=== PATIENT | male | born 2000 | race Caucasian/White ===

== ENCOUNTER 2024-10-26 11:54 | Emergency (ER) | payer OTHER, SELFPAY ==
--- NOTE | ~2024-10-26 | XR_ITS ---
EXAMINATION: XR SHOULDER, RIGHT CLINICAL INFORMATION: Right shoulder pain. dislocation COMPARISON: None available. TECHNIQUE: AP external rotation, Grashey, scapular Y, and axillary views of the right shoulder. FINDINGS: The bones and soft tissues are normal. No fracture. Glenohumeral and acromioclavicular alignment is anatomic with normal joint space. No abnormal soft tissue calcifications. XR/XR shoulder RT min 2V IMPRESSION: Normal right shoulder. Electronically signed by: Jefry Mcallister MD 10/26/2024 02:33 PM EST [place]
[2024-10-26 12:48] VITALS: BP 135/79; PULSE 100; RESP 18; TEMP 36.6; O2SAT 100; BMI 27.1
--- NOTE | 2024-10-26 12:51 | ED_ITS ---
HPI - Extremity Problem General Chief complaint: Extremity Injury, Upper Stated complaint: r shoulder inj at work Time Seen by Provider: 10/26/24 14:10 Source: patient Mode of arrival: ambulatory Limitations: no limitations History of Present Illness ED Provider: Lily Madera PA-C HPI Narrative: 24-year-old male with no significant past medical history seen in the ED for concerns regarding pain to the right shoulder after lifting a couch at work; reports that the pain radiates to the ribs on the right side as well as the right upper portion of the back. Has not tried anything to relieve the pain. Reports that movement makes it worse and he has limited range of motion to the right upper extremity. Denies chest pain, shortness of breath, numbness and tingling of extremities. Denies fever, chills, generalized weakness. MD Complaint: extremity pain Onset (ago): hour(s) (6) Pain Consistency: constant Location: right, upper extremity and other (shoulder) Radiation: other (scapular region and ribs on right side ) Relieving factors: nothing Exacerbating factors: range of motion Related Data Allergies Allergy/AdvReac Type Severity Reaction Status Date / Time No Known Allergies Allergy Verified 10/26/24 12:49 Review of Systems Constitutional: Constitutional: Reports no additional constitutional complaints, Denies chills, Denies fever(s) and Denies night sweats Eyes: Eyes: Reports no additional eye complaints, Denies blurry vision, Denies change in vision, Denies diplopia, Denies eye discharge, Denies loss of vision and Denies eye pain ENT: Denies dizziness Cardiovascular: Cardiovascular: Reports no additional cardiovascular complaints, Denies chest pain, Denies lightheadedness, Denies Loss of Cons ciousness and Denies dyspnea Respiratory: Respiratory: Reports no additional respiratory complaints and Denies dyspnea Gastrointestinal: Gastrointestinal: Reports no additional gastrointestinal complaints, Denies abdominal pain, Denies melena, Denies hematochezia, Denies change in bowel habits and Denies change in stool character Genitourinary: Genitourinary: Reports no additional male genitourinary complaints, Denies hematuria, Denies oliguria, Denies difficulty urinating, Denies dysuria, Denies urinary frequency, Denies urinary hesitancy, Denies urinary incontinence and Denies urinary urgency Musculoskeletal: Musculoskeletal: Reports limited range of motion, Denies numbness and Denies tingling Comments: pain to right shoulder/scapular region; limited ROM upper right extremity secondary to pain Integumentary/Breasts: Skin/Breast: Reports system reviewed and no additional complaints, except as docu and Reports as per HPI Neurologic: Denies dizziness, Denies loss of vision, Denies numbness and Denies tingling Psychiatric: Psychiatric: Reports no additional psychiatric complaints Endocrine: Endocrine: Reports no additional endocrine complaints Hematologic/Lymphatic: Hematologic/Lymphatic: Reports no additional hematologic/lymphatic complaints Allergic/Immunologic: Allergic/Immunologic: Reports no additional allergic/immunologic complaints [facility] Past Medical History Attestation statement: The following information was validated with the patient. Source: old records reviewed and nursing notes reviewed Social History Social History Advance Directives: No Advance Directives Information Provided: No Physical Exam Vital Signs: Vital Signs: Last Vital Signs Temp 98 F 10/26/24 15:34 Pulse 100 10/26/24 15:34 Resp 18 10/26/24 15:34 BP 135/79 10/26/24 15:34 Pulse Ox 100 10/26/24 15:34 O2 Del Method Room Air 10/26/24 15:34 BMI result Body Mass Index 27.1 Const: General: cooperative, no acute distress, alert and awake Nutritional Appearance: well nourished Orientation/consciousness: patient oriented x3 Limitations: no limitations HEENT: Head: Yes normal to inspection and Yes atraumatic Ears: hearing grossly normal bilaterally and external ears normal General nose exam: Normal external nose present, no nasal discharge noted and no epistaxis Face and sinus: Yes normal facial exam, No abrasion and No laceration Mouth: Normal or al and palatal mucosa present, no drooling and no muffled voice Eyes: General: appearance normal, both eyes and all related structures Periorbital: periorbital findings normal Eyelids: Yes eyelids normal Conjunctivae: conjunctivae normal Pupils: Equal, round and reactive pupils present EOM: EOMs intact bilaterally Neck: Neck: Yes normal visual inspection, Yes full ROM and Yes no lymphadenopathy Chest: Chest palpation & inspection: normal inspection of the chest Resp: Effort & Inspection: normal respiratory effort and able to speak in complete sentences Auscultation: clear to auscultation bilaterally, no crackles, no rales, no rhonchi and no wheezes Cardio: Rate: regular rate Rhythm: regular rhythm GI: Inspection: Yes normal to inspection Skin: General skin exam: no rashes or lesions noted Neuro: General: patient oriented x3 and moves all extremities Cranial nerves: Yes Equal, round and reactive pupils present Cognition (Neuro): normal cognition Extrem: General: Yes normal to inspection and Yes capillary refill normal Right upper extremity: normal capillary refill and shoulder/upper arm Details: abnormal ROM Details: pain with active ROM; no tenderness; ROM limited and no cyanosis Left upper extremity: full ROM Right lower extremity: full ROM Left lower extremity: full ROM Psych: Appearance: grossly normal Mental Status: mental status grossly normal Affect: normal affect Attitude: cooperative Thought process: Normal thought process present Thought content: Normal thought content present Insight: Good insight present (Psych) Course Course Course Narrative: RME: 24 yold male presents to ED for right shoulder upper back pain after l ifting heavy couch 08:00 this morning. While lifting he felt sudden pinch in right shoulder. Patient states able to move shoulder but pain on range of motion. Exam positive for mild posterior shoulder tenderness on palpation negative for obvious deformity. Vascular neuro exam intact. Motor exam limited due to pain, but intact. Medical Decision Making Medical Decision Making MDM Narrative: Patient is a 24 year old assigned male at with no reported medical history presenting to the emergency department today with right shoulder pain. Patient's physical exam was as noted in the physical exam portion of this note. Patient's exam is most consistent with a rotator cuff injury. Patient's right shoulder x- ray showed no acute process. I explained my physical exam findings as well as all test results to the patient. I answered all questions asked by the patient. I stressed the importance of the patient taking his medication as directed (either prescribed or as the over the counter packaging recommends). I stressed the importance of the patient following up with his primary care provider, an orthopedic provider, and given this was a work place injury - with work connection. I stressed the importance of the patient returning to the emergency department immediately if his symptoms were to worsen or if he were to develop any dizziness, shortness of breath, difficulty breathing, chest pain, blurry vision, loss of vision, nausea, vomiting, abdominal pain, fever, chills, back pain, or any other complaints. Patient verbalized agreement and understanding with this treatment plan and discharge. Differential Diagnosis Differential Diagnoses: The differential diagnosis associated with the presentation includes Right rotator cuff injury Right rotator cuff strain Right rotator cuff sprain Right AC sprain Right AC strain Admission/Observation Consideration of admission/observation: Escalation of care including admission/observation considered Patient would have been admitted to the hospital had his work up had any findings where hospital admission was appropriate and his clinical presentation warranted hospital admission. Independent Interpretation I performed an independent interpretation of an: Plain X-Ray Interpretation: My interpretation is in agreement with the radiologist's impression of this imaging study. EXAMINATION: XR SHOULDER, RIGHT CLINICAL INFORMATION: Right shoulder pain. dislocation COMPARISON: None available. TECHNIQUE: AP external rotation, Grashey, scapular Y, and axillary views of the right shoulder. FINDINGS: The bones and soft tissues are normal. No fracture. Glenohumeral and acromioclavicular alignment is anatomic with normal joint space. No abnormal soft tissue calcifications. XR/XR shoulder RT min 2V IMPRESSION: Normal right shoulder. Electronically signed by: Jefry Mcallister MD 10/26/2024 02:33 PM [facility] Dictated By: Jefry Mcallister MD Signed By: Electronically signed by Jefry Mcallister MD 10/26/24 1433 Radiology Impression Discussion of test interpretation with radiology: I have reviewed the radiologist's reading. Discharge Plan Discharge Clinical Impression: Rotator cuff injury Patient Disposition: Home, Self-Care Instructions: Rotator Cuff Injury (ED), Rotator Cuff Injury Exercises (DC) Additional Instructions: Follow up with your primary care provider, an orthopedic provider, and with work connection. Return to the emergency department immediately if your symptoms worsen or if you develop any dizziness, shortness of breath, difficulty breathing, chest pain, blurry vision, loss of vision, nausea, vomiting, abdominal pain, fever, chills, back pain, or any other complaints. Referrals: [facility] [facility] Family Medicine [Provider Group] (Call to establish and follow up with a primary care provider. If you already have a primary care provider, please follow up with them. ) [facility] [place] [facility] Primary Care, [place] [Provider Group] (Call to establish and follow up with a primary care provider. If you already have a primary care provider, please follow up with them. ) [facility] [place] [facility] Primary Care,[place] [Provider Group] (Call to establish and follow up with a primary care provider. If you already have a primary care provider, please follow up with them. ) [facility] [place] Orthopedic Surgeons [Provider Group] (Call to establish and follow up with an orthopedic provider for your probable right rotator cuff strain / sprain. ) Work [facility] [Provider Group] (Given this was a work place injury, please call to establish and follow up with work connection. ) Stand Alone Forms: Work/School Release Interventions: ED Discharge Assessment Last Done: 10/26/24 15:34 Discharge Date/Time: 10/26/24 15:35 Print Language: Azeri
[2024-10-26 15:34] VITALS: BP 135/79; PULSE 100; RESP 18; TEMP 36.6; O2SAT 100
== END 2024-10-26 15:35 | disposition home or self-care (01) ==
PROVIDERS: Emergency Provider Emergency Medicine
DX: M75.101 Unspecified rotator cuff tear or rupture of right shoulder, not specified as traumatic (principal); X50.0XXA Overexertion from strenuous movement or load, initial encounter; Y93.89 Activity, other specified; Y92.9 Unspecified place or not applicable; Y99.0 Civilian activity done for income or pay
CPT/HCPCS: 73030; 99282; 99283

== ENCOUNTER 2024-11-05 13:02 | Outpatient (AMB) | payer OTHER, SELFPAY ==
--- NOTE | 2024-11-05 13:07 | MHC.OFFVIS ---
Intake Visit Reasons: ED f/u WC Rt Rotator cuff injury Intake Note: Jake a 24 year old male who presents today as a new patient for a evaluation of right shoulder injury, DOI: 10/26/24. Patient reports while at work he was lifting a couch and had rotated couch to get through the door. The couch was slipping and he had caught couch from falling and felt a pinch. He presented to [facility] the same day where x-rays were taken and referred to orthopedics. He continues to have pain a the top of his shoulder that travels to his shoulder blade. Denies numbness or tingling. Limited ROM. States having swelling in his fingers however this subsided about a week after his injury. No previous tx. He is currently out of work. Allergies strawberries Allergy (Uncoded 11/05/24 13:10) itchy mouth Medication List - Last Reconciled 11/05/24 by Andrew Espinoza PA-C No Known Home Meds HPI HPI ED f/u WC Rt Rotator cuff injury: Details: 24 yo male presents to the office today for an injury he sustained to the right shoulder on 10/26/24. He states him in a co-worker were trying to move a couch when he went [address] and the co-worker went the other way and the couch went to fall and he tried to catch it with his arm. He states at that moment felt a pull in his shoulder. He states he has difficulty with lifting the arm. He has significant weakness. He was seen in the emergency department, x-rays obtained and he was referred to our office for ortho eval. [facility] Social History (Updated 11/05/24 @ 13:11 by KIRSTY Helm) Patient Tobacco Use Status: Current everyday Tobacco user Current occupational status: employed Current occupation: maintenance, right hand dominant Review of Systems Const All systems reviewed & are unremarkable except as noted in HPI and below Physical Exam Const General: cooperative and no acute distress Orientation/consciousness: patient oriented x3 Resp Effort & Inspection: normal respiratory effort and able to speak in complete sentences Cardio Peripheral pulses: Peripheral pulses 2+ throughout Neuro General: patient oriented x3 Extrem Other: On inspection he has significant shoulder imbalance on the right compared to the contralateral side when. Forward flexion to 90 degrees. External rotation 45 degrees. Internal rotation to back pocket. Significant discomfort with rotator cuff strength testing. Positive Knobel's. Neurovascularly intact. Results Reviewed Results Reviewed: X-rays of the right shoulder obtained in the emergency department on October 26 are negative for any fractures or dislocations. Joint space well preserved. Assessment & Plan Assessment & Plan (1) Internal derangement of right shoulder: Code(s): M24.811 - Other specific joint derangements of right shoulder, not elsewhere classified Category: Medical Plan: At this time an MRI of the right shoulder has been ordered to further evaluate the integrity of the rotator cuff and surrounding structures. I did review with him some exercises he should work on at home such as pendulums and scapular stabilization. He will remain out of work until I see him back to discuss the results and determine the next step in his treatment he is content with this plan. Orders: Orders MR shoulder RT wo con Today M77.8 - Other enthesopathies, not elsewhere classified Coding Level of Care Code New Pt Level 3 (18120) Complex EM visit Add On G2211 Diagnoses Internal derangement of right shoulder M24.811
== END 2024-11-05 13:34 | disposition home or self-care (01) ==
PROVIDERS: Visit Provider Physician Assistant
DX: M24.811 Other specific joint derangements of right shoulder, not elsewhere classified (principal)
CPT/HCPCS: 99203; G2211

== ENCOUNTER → 2024-11-05 13:02 | Outpatient (BNVA) | payer OTHER, SELFPAY | PROVIDERS: Visit Provider Physician Assistant | DX: M24.811 Other specific joint derangements of right shoulder, not elsewhere classified (principal) | CPT/HCPCS: 99202 ==

== ENCOUNTER 2024-11-14 07:17 | Outpatient (REF) | payer OTHER, SELFPAY ==
--- NOTE | ~2024-11-14 | MR_ITS ---
EXAMINATION: MR SHOULDER WITHOUT CONTRAST RIGHT CLINICAL INFORMATION: Other enthesopathies, not elsewhere classified - M77.8. Right shoulder tightness, decreased ROM. Crunching sound. Lifting injury. Pain. COMPARISON: XR right shoulder 10/26/2024. TECHNIQUE: MRI of the shoulder without contrast was performed on a high-field scanner. FINDINGS: ROTATOR CUFF: Intact. No muscle atrophy or fatty infiltration. BICEPS: Intact. CORACOACROMIAL ARCH: The undersurface of the acromion is flat with no subacromial spur. The acromioclavicular joint is normal. LABRUM/CAPSULE: No displaced labral tear. Intact joint capsule. GLENOHUMERAL JOINT/MARROW: Intact articular cartilage. No marrow edema or evidence of acute osseous injury. Humeral head well seated within the glenoid. No joint effusion. MR/MR shoulder RT wo con IMPRESSION: Unremarkable examination. Electronically signed by: Mello Beckham MD 11/17/2024 10:41 AM JOSE ELIAS
== END 2024-11-14 07:18 | disposition home or self-care (01) ==
LOC: HO.MRI 07:17
PROVIDERS: Visit Provider Physician Assistant
DX: M77.8 Other enthesopathies, not elsewhere classified (principal)
CPT/HCPCS: 73221

== ENCOUNTER 2024-11-27 10:06 | Outpatient (AMB) | payer OTHER, SELFPAY ==
--- NOTE | 2024-11-27 10:07 | A.OFFVIS_ITS ---
Vital Signs 11/27/24 10:09 Height 6 ft Weight 200 lb BMI 27.1 Intake Visit Reasons: TH- MRI review RT shoulder Intake Note: Jake is a 24 year old male who presents today for an MRI review of right shoulder s/p WC injury on 10/26/24. Patient reports that he has had improvement in his shoulder pain however he does having ongoing pain and tension. Allergies strawberries Allergy (Uncoded 11/27/24 10:10) itchy mouth Medication List - Last Reconciled 11/27/24 by Andrew Espinoza PA-C No Known Home Meds HPI HPI TH- MRI review RT shoulder: Details: 24-year-old gentleman returns today for a telehealth visit MRI review right shoulder. States he has had some improvement in pain however he continues to have some sensation of instability with reaching behind his back. For example with putting on a seatbelt. [facility] Social History (Updated 11/05/24 @ 13:11 by Cherie Lundy Alfonso) Patient Tobacco Use Status: Current everyday Tobacco user Current occupational status: employed Current occupation: maintenance, right hand dominant Review of Systems Const All systems reviewed & are unremarkable except as noted in HPI and below Physical Exam Const General: cooperative and no acute distress Orientation/consciousness: patient oriented x3 Resp Effort & Inspection: normal respiratory effort and able to speak in complete sentences Cardio Peripheral pulses: Peripheral pulses 2+ throughout Neuro General: patient oriented x3 Telehealth Telehealth Telehealth Platform: Telephone Location of provider rendering services: practice address Location of patient: address on file Patient Identification confirmed using: Name, : Yes Telehealth method: voice only Patient verbally consented to treatment: Yes Patient verbally consented to billing insurance company: Yes Patient informed of any privacy concerns related to visit: Yes Minutes spent on Phone/Video with Pt.: 12 Results Reviewed Results Reviewed: MRI of the shoulder without contrast was performed on a high-field scanner. FINDINGS: ROTATOR CUFF: Intact. No muscle atrophy or fatty infiltration. BICEPS: Intact. CORACOACROMIAL ARCH: The undersurface of the acromion is flat with no subacromial spur. The acromioclavicular joint is normal. LABRUM/CAPSULE: No displaced labral tear. Intact joint capsule. GLENOHUMERAL JOINT/MARROW: Intact articular cartilage. No marrow edema or evidence of acute osseous injury. Humeral head well seated within the glenoid. No joint effusion. MR/MR shoulder RT wo con IMPRESSION: Unremarkable examination. Assessment & Plan Assessment & Plan (1) Internal derangement of right shoulder: Code(s): M24.811 - Other specific joint derangements of right shoulder, not elsewhere classified Category: Medical (2) Other instability, right shoulder: Code(s): M25.311 - Other instability, right shoulder Category: Medical Plan Given the patient's ongoing sensation of instability I recommend a course of physical therapy to work on range of motion and periscapular/rotator cuff strengthening exercises. I suggest that he avoid positions of instability such as overhead reaching with weight and any positioned behind the coronal plane of the body. He will remain out of work until his next appointment in 6-8 weeks for re-evaluation, sooner if needed. Orders: Orders PT Evaluation and Treatment Today M24.811 - Other specific joint derangements of right shoulder, not elsewhere classified, M25.311 - Other instability, right shoulder Coding Level of Care Code Tele Est Pt Level 3 (76749) Complex EM visit Add On G2211 Diagnoses Internal derangement of right shoulder M24.811 Other instability, right shoulder M25.311
[2024-11-27 10:09] VITALS: BMI 27.1
== END 2024-11-27 10:17 | disposition home or self-care (01) ==
LOC: HO.HOS 10:06
PROVIDERS: Visit Provider Physician Assistant
DX: M24.811 Other specific joint derangements of right shoulder, not elsewhere classified (principal); M25.311 Other instability, right shoulder
CPT/HCPCS: 98012; G2211

== ENCOUNTER → 2024-11-27 10:06 | Outpatient (BNVA) | payer OTHER, SELFPAY | PROVIDERS: Visit Provider Physician Assistant ==

== ENCOUNTER 2024-12-28 06:00 | Outpatient (RCR) | payer OTHER, SELFPAY ==
--- NOTE | 2024-12-04 10:33 | MHC.PT.EP ---
[facility] [place] Office [place] Office [place] Office [address] Boubacar Machado [address] [phone] F: [phone] F: [phone] F: [phone] F: [phone] Physical Therapy Plan of Care Date of Evaluation: 12/04/24 Date of Surgery: n/a Diagnosis: internal derangement of R shoulder Assessment: Patient is a 24 year old male presenting to PT with complaints of pain in his R shoulder. Pt reports onset of pain began 10/26/2024 due to catching a couch that was falling. He presents today with impairments in pain, ROM, posture, shoulder strength. 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 Pt expresses correction goal of returning to PLOF, and is motivated to work towards this in PT. Clinical presentation today is most consistent with signs and sx associated with R shoulder pain and pt will benefit from skilled PT 2 week x 4 weeks to address the following problems and impairments noted upon evaluation: pain, ROM, posture, shoulder strength. These problems limit the patient with the following functional activities: reaching, lifting, ADLs, work. The prescribed treatment plan of care is medically necessary. Co-morbidities of none were identified and taken into considerations of plan of care. Pt was educated on HEP, role of PT, prognosis, POC. Frequency and Duration: The patient will be seen 2 x week x 4 weeks Short Term Goals: Pt will demonstrate improved R shoulder ROM to equal B in 2 weeks. Pt will demonstrate R shoulder MMT improved by 1/3 grade in 2 weeks. Cable Maker Goals: Pt will demonstrate improved SPADI score by 13 points in 4 weeks for improved functional mobility. Pt will demonstrate improved ability to reach with min to no pain in 4 weeks for return to PLOF. Pt will demonstrate ability to lift with min to no pain in 4 weeks for prepare for return to work. Treatment Plan: Modalities to reduce pain, spasms and effusion. Manual therapy to restore motion and function. Therapeutic exercise to improve strength and flexibility. Neuromuscular re-education for posture and balance. Therapeutic activities to return to functional activities of daily living. Electronically signed by: Tessy Jiménez, PT, DPT, ATC Please sign and return to therapist. Thank you for your referral.
--- NOTE | 2024-12-28 06:41 | MHC.PT.DC ---
[facility] [place] Office [place] Office [place] Office [address] Boubacar Machado [address] [phone] F: [phone] F: [phone] F: [phone] F: [phone] Physical Therapy Discharge Report Diagnosis: internal derangement of R shoulder Date of Surgery: n/a Date of Evaluation: 12/04/24 Date of Discharge: 12/28/24 Treatments to Date: 8 Cancellations to Date: 0 No Shows to Date: 0 Discharge Status: Independent with HEP Recommend MD Follow-up Discharge Summary: 12/28/2024: Pt has made some progress since start of care but unfortunately is continuing to feel popping and instability in his shoulder which is limiting him from progressing further. He has most pain when performing IR ROM. He has not been able to lift. At this time pt is not making significant progress and therefore it is no longer appropriate to continue with skilled PT. He has a follow up scheduled with ortho which I recommend attending. He knows to also continue with HEP at home as tolerated to maintain gains. Electronically signed by: Tessy Jiménez, PT, DPT, ATC Please sign and return to therapist. Thank you for your referral.
== END 2024-12-28 06:42 | disposition home or self-care (01) ==
LOC: HO.PTCHIC 06:00
PROVIDERS: Visit Provider Physician Assistant
DX: M24.811 Other specific joint derangements of right shoulder, not elsewhere classified (principal); M25.311 Other instability, right shoulder
CPT/HCPCS: 97110; 97161

== ENCOUNTER 2025-01-08 10:28 | Outpatient (AMB) | payer OTHER, SELFPAY ==
[2025-01-08 10:33] VITALS: BMI 27.1
--- NOTE | 2025-01-08 10:33 | A.OFFVIS_ITS ---
Vital Signs 01/08/25 10:33 Height 6 ft Weight 200 lb BMI 27.1 Intake Visit Reasons: ov- rt shoulder WC injury, 10/26/24 Intake Note: Jake is a 24 year old right hand dominant male who presents today for a follow up of his right shoulder. He injured the right shoulder at work on 10/26/24. At his last visit he was given an order for physical therapy, instructed to avoid overhead reaching & lifting. He was given a continued out of work note until his follow up today. Patient rpeorts that he is doing better but he is still struggling with lifting and reaching. He feels that the shoulder is going to dislocate. He has popping, cracking and tearing noise of the shoulder. Allergies strawberries Allergy (Uncoded 01/08/25 10:37) itchy mouth Medication List - Last Reconciled 01/08/25 by Andrew Espinoza PA-C No Known Home Meds HPI HPI ov- rt shoulder WC injury, 10/26/24: Details: 24-year-old gentleman returns to the office today for a workman's comp injury to the right shoulder date of injury 10/26/2024. He has been working with physical therapy for rotator cuff and periscapular strengthening exercises however he continues to have significant instability of the right shoulder with any type of lifting or reaching activities. States he even picks up his daughter and he feels the shoulder sublux. He has significantly limited in daily activities. [facility] Social History Patient Tobacco Use Status: Current everyday Tobacco user Current occupational status: employed Current occupation: maintenance, right hand dominant Review of Systems Const All systems reviewed & are unremarkable except as noted in HPI and below Physical Exam Vital Signs: BMI result Body Mass Index 27.1 Extrem Other: Right shoulder normal to inspection. Positive Washta's. Positive apprehension test. Positive sulcus sign. Assessment & Plan Assessment & Plan (1) Other instability, right shoulder: Code(s): M25.311 - Other instability, right shoulder Category: Medical Plan: Given his continued instability I would like to have him see Dr. Hanson to discuss further options which may include surgical intervention. I did briefly discuss what surgery may entail including postop course with a sling and physical therapy. Will continue to remain out of work until he is seen with Dr. Hasnon to determine the next step in his treatment. Coding Level of Care Code Est Pt Level 3 (45722) Complex EM visit Add On G2211 Diagnoses Other instability, right shoulder M25.311
== END 2025-01-08 10:50 | disposition home or self-care (01) ==
PROVIDERS: Visit Provider Physician Assistant
DX: M25.311 Other instability, right shoulder (principal); Z04.2 Encounter for examination and observation following work accident
CPT/HCPCS: 99213; G2211

== ENCOUNTER → 2025-01-08 10:28 | Outpatient (BNVA) | payer OTHER, SELFPAY | PROVIDERS: Visit Provider Physician Assistant | DX: M25.311 Other instability, right shoulder (principal) | CPT/HCPCS: 99212 ==

== ENCOUNTER 2025-02-18 12:24 | Outpatient (AMB) | payer OTHER, SELFPAY ==
[2025-02-18 12:27] VITALS: BMI 27.1
--- NOTE | 2025-02-18 12:27 | MHC.OFFVIS ---
Vital Signs 02/18/25 12:27 Height 6 ft Weight 200 lb BMI 27.1 Intake Visit Reasons: OV-Right shoulder-discuss surgery Intake Note: Jake is a 24 year old right hand dominant male who presents today for a follow up of his right shoulder. He was last seen with Andrew where he reported a right shoulder injury at work on 10/26/24. Patient reports that he has continued instability, due to this he was referred to discuss surgical intervention. He remains out of work at this time. Allergies strawberries Allergy (Uncoded 02/18/25 12:30) itchy mouth HPI HPI OV-Right shoulder-discuss surgery: Details: The patient is a 24-year-old male presenting with right shoulder pain and dysfunction. The injury occurred on October 26 when the patient was moving a couch and sustained an acute pulling injury to the right arm. Immediate symptoms included a pulling sensation radiating into the back, eventually leading to scapular winging and clicking in the shoulder joint. The patient reports undergoing therapy which has aided in improving the range of motion but mentions the persistence of the clicking and scapular winging symptoms. Occasional morning pain is noted, although significant neck pain or paresthesia is denied. The condition disrupts regular activities, and the patient is on Workman's Compensation due to the injury while also facing employment loss. He does not complain pain or weakness however not complain of pain or weakness however. [facility] Social History Patient Tobacco Use Status: Current everyday Tobacco user Current occupational status: employed Current occupation: maintenance, right hand dominant Physical Exam Vital Signs: BMI result Body Mass Index 27.1 Extrem Other: No weakness in shoulder abduction or forward flexion There is medial scapular winging on the right Results Reviewed Results Reviewed: I personally reviewed the MR images. MRI of the right shoulder is unremarkable Assessment & Plan Assessment & Plan (1) Winged scapula of right side: Code(s): M95.8 - Other specified acquired deformities of musculoskeletal system Category: Medical Plan: Medial scapular winging which may be attributable to long so thoracic nerve dysfunction versus muscle injury versus cervical neuralgia. He has no pain in his not particularly weak any of the other shoulder exams. At this point I recommend physical therapy and an EMG. With respect to his employment he states that he has been let go from his position. I would recommend a return to light duty at this time and that would involve no lifting overhead and no heavy lifting. Management of scapular dyskinesis and medial winging involves continuing physical therapy aimed at improving scapular stability and control through specific strengthening exercises. An EMG was ordered for further assessment of possible neurologic etiology. I recommend continued observation. I discussed with the patient the likelihood of scapular dyskinesis and the non-suitability of surgical intervention at this stage. The benefits and limitations of physical therapy were outlined, highlighting scapular stabilization and strengthening. The recommended EMG aims to evaluate potential nerve issues, with associated risks being minimal, involving needle insertions and electrical impulses testing. We discussed that continued therapy is advisable at present due to its potential to influence the long-term outcome. The patient was informed about the importance of maintaining consistent therapy to mitigate current symptoms and improve function. The plan to conduct an EMG and the process for potential further interventions if symptoms persist or worsen were included. Patient was informed and verbally consented to the use of an ambient scribe for clinic note documentation during this visit. Orders: Orders NE electromyogram (EMG) Today M95.8 - Other specified acquired deformities of musculoskeletal system NE nerve conduction velocity Today M95.8 - Other specified acquired deformities of musculoskeletal system PT Evaluation and Treatment 02/18/25 M25.311 - Other instability, right shoulder Patient Instructions: - Continue with physical therapy as advised, focusing on scapular stabilization and strengthening. - Schedule and attend the EMG appointment as it becomes available. - Monitor symptoms and report any significant changes or worsening of shoulder function. - Be mindful of body mechanics during daily activities to avoid exacerbation of symptoms. - Follow up as scheduled for reassessment and further instructions. Coding Level of Care Code Est Pt Level 4 (46935) Diagnoses Winged scapula of right side M95.8
== END 2025-02-18 12:59 | disposition home or self-care (01) ==
LOC: HO.HOS 12:25
PROVIDERS: Visit Provider Orthopaedic Surgery
DX: M25.311 Other instability, right shoulder (principal); M95.8 Other specified acquired deformities of musculoskeletal system
CPT/HCPCS: 99214

== ENCOUNTER → 2025-02-18 12:24 | Outpatient (BNVA) | payer OTHER, SELFPAY | PROVIDERS: Visit Provider Orthopaedic Surgery | DX: M25.311 Other instability, right shoulder (principal); M95.8 Other specified acquired deformities of musculoskeletal system | CPT/HCPCS: 99212 ==

== ENCOUNTER 2025-03-26 14:39 | Outpatient (REF) | payer OTHER, SELFPAY ==
--- NOTE | 2025-03-26 14:41 | EMG_ITS ---
Chief complaint: Right shoulder/scapular pain, right scapular winging Reason for referral: Evaluate for brachial plexopathy Referred by: Dr. Hanson Procedure done: Right upper extremity NCS/EMG Precautions and/or limitations: None The limb temperature was monitored continuously and remained between 32-36 degrees C during the performance of the NCS. Nerve Conduction Studies Anti Sensory Summary Table ?Stim Site NR Onset (ms) Norm Onset (ms) Peak (ms) Norm Peak (ms) O-P Amp (?V) Norm O-P Amp Site1 Site2 Delta-0 (ms) Dist (cm) Sincere (m/s) Norm Sincere (m/s) Right Lat Ante Brach Cutan Anti Sensory (Lat Forearm) Lat Biceps ? 1.1 1.3 21.3 Lat Biceps Lat Forearm 1.1 0.0 Right Med Ante Brach Cutan Anti Sensory (Med Forearm) Elbow ? 2.1 2.5 21.6 Elbow Med Forearm 2.1 0.0 Right Median Anti Sensory (2nd Digit) Wrist ? 2.6 3.3 <3.6 52.8 >10 Wrist 2nd Digit 2.6 14.0 54 Right Radial Anti Sensory (Thumb) Forearm ? 1.7 2.3 <3.1 32.7 Forearm Thumb 1.7 0.0 Right Ulnar Anti Sensory (5th Digit) Wrist ? 2.7 3.5 <3.7 24.6 >15.0 Wrist 5th Digit 2.7 14.0 52 Motor Summary Table ?Stim Site NR Onset (ms) Norm Onset (ms) O-P Amp (mV) Norm O-P Amp iAmp (mV) Amp (1st) (%) Site1 Site2 Delta-0 (ms) Dist (cm) Sincere (m/s) Norm Sincere (m/s) Right Median Motor (Abd Poll Brev) Wrist ? 3.8 <3.9 14.0 >4.5 16.9 100.0 Elbow Wrist 3.8 23.0 61 >45 Elbow ? 7.6 13.0 16.3 92.9 Right Ulnar Motor (Abd Dig Minimi) Wrist ? 3.0 <3.0 10.2 >5 12.3 100.0 B Elbow Wrist 4.0 33.0 83 >45 B Elbow ? 7.0 10.0 12.6 98.0 A Elbow B Elbow 1.6 10.0 63 >45 A Elbow ? 8.6 9.8 12.3 96.1 EMG ?Side Muscle Nerve Root Ins Act Fibs Psw Amp Dur Poly Recrt Int Pat Comment Right 1stDorInt Ulnar C8-T1 Nml Nml Nml Nml Nml 0 Nml Complete Right FlexCarRad Median C6-7 Nml Nml Nml Nml Nml 0 Nml Complete Right Biceps Musculocut C5-6 Nml Nml Nml Nml Nml 0 Nml Complete Right Triceps Radial C6-7-8 Nml Nml Nml Nml Nml 0 Nml Complete Right Deltoid Axillary C5-6 Nml Nml Nml Nml Nml 0 Nml Complete Right Rhomboid Major DorsalScap C5 Nml Nml Nml Nml Nml 0 Nml Complete Right Supraspinatus SupraScap C5-6 Nml Nml Nml Nml Nml 0 Nml Complete Paraspinal EMG ?Side Muscle Nerve Root Ins Act Fibs Psw Comment Right Cervical Upper Rami Nml Nml Nml Right Cervical Mid Rami Nml Nml Nml Right Cervical Lower Rami Nml Nml Nml FINDINGS: All motor and sensory nerves tested showed normal latencies, amplitudes and conduction velocities. Concentric needle EMG was performed in selected muscles of the right upper extremity and cervical paraspinals. Study did not reveal signs of electric abnormalities as shown in the table above. IMPRESSION: 1. This is a normal study. 2. There is no electrodiagnostic evidence for median neuropathy, ulnar neuropathy, brachial plexopathy, or cervical radiculopathy. Thank you for your kind referral. Unique De Souza MD, MEME Board Certified, [place] [employer] and [employer] (ABPMR) Board Certified, [place] Board [employer] Electro[employer] (ABEM) CODIN [id number] [phone] [id number] [facility]
--- OUTSIDE RECORDS SUMMARY | 2025-03-26 14:44 | XMS_ITS | Clinical Summary ---
Author Organization [facility] it Address [address] [place] [address] Care Team Providers Care Credit Risk Manager Name Role Phone Unavailable Primary Care Provider Unavailabl e Social History Tobacco Use Types Packs/Day Years Used Date Smoking Tobacco: Never Assessed Sex and Gender Information Value Date Recorded Sex Assigned at Not on file Legal Sex Male 3:16 AM EST Gender Identity Not on file Sexual Orientation Not on file Plan of Treatment Health Maintenance Due Date Last Done Comments HPV Vaccines (1 - Male 3-dos e series) 2015 DTaP,Tdap,and Td Vaccines (1 - Tdap) 2019 Hepatitis B Vaccines (1 of 3 - 19+ 3-dose series) 2019 COVID-19 Vaccine ( - 2023-2 5 season) 2024 Influenza Vaccine (Season Ended) 2025 HIB Vaccines Aged Out No longer eligi ble based on patient's age to complete this topic Hepatitis A Vaccines Aged Out No long er eligible based on patient's age to complete this topic IPV Vaccines Aged Out No longer eligi ble based on patient's age to complete this topic MMR Vaccines Aged Out No longer eligi ble based on patient's age to complete this topic Meningococcal ACWY Vaccine Aged Out N o longer eligible based on patient's age to complete this topic Meningococcal B Vaccine Aged Out No l onger eligible based on patient's age to complete this topic Pneumococcal Vaccine: Pediat rics (0 to 5 Years) and At-Risk Patients (6 to 64 Years) Aged Out No longer eligible b ased on patient's age to complete this topic RSV Immunization Patients Un kortney 20 months Aged Out No longer eligible b ased on patient's age to complete this topic Varicella Vaccines Aged Out No longer eligible based on patient's age to complete this topic
== END 2025-03-26 14:40 | disposition home or self-care (01) ==
LOC: HO.NEURO 14:39
PROVIDERS: Visit Provider Orthopaedic Surgery
DX: Z13.89 Encounter for screening for other disorder (principal)

== ENCOUNTER → 2025-03-26 14:41 | Outpatient (BNV) | payer OTHER, SELFPAY | PROVIDERS: Visit Provider Physical Medicine & Rehabilitation | DX: R20.0 Anesthesia of skin (principal); R20.2 Paresthesia of skin; M25.511 Pain in right shoulder | CPT/HCPCS: 95886; 95910 ==